=== PATIENT | female | born 1990 | race African-American/Black ===

== ENCOUNTER → 2018-12-18 | Emergency (ER) | payer OTHER ==
[~2018-12-18] VITALS: Ht 154.9 cm; Wt 61.2 kg
== END | disposition home or self-care (01) ==
LOC: ER 12:10
DX: K29.70 Gastritis, unspecified, without bleeding (principal)

== ENCOUNTER → 2020-06-17 | Outpatient (CLI) | payer OTHER | END | disposition home or self-care (01) | LOC: PRENATAL 08:00 | PROVIDERS: ATTEND Obstetrics & Gynecology Maternal & Fetal Medicine | DX: O28.1 Abnormal biochemical finding on antenatal screening of mother (principal); O35.0XX1 Maternal care for (suspected) central nervous system malformation in fetus, fetus 1; O35.3XX1 Maternal care for (suspected) damage to fetus from viral disease in mother, fetus 1; O98.512 Other viral diseases complicating pregnancy, second trimester; O34.211 Maternal care for low transverse scar from previous cesarean delivery; Z36.89 Encounter for other specified antenatal screening; Z3A.19 19 weeks gestation of pregnancy ==

== ENCOUNTER 2020-06-30 07:32 | Outpatient (CLI) | payer OTHER | END 2020-06-30 07:34 | disposition home or self-care (01) | LOC: SONOGRAMA 07:32 → MAMO-SONO 07:45 | PROVIDERS: ATTEND Specialist | DX: R10.2 Pelvic and perineal pain (principal) ==

== ENCOUNTER 2020-10-01 14:07 | Outpatient (CLI) | payer OTHER ==
[2020-10-01] MEDS ORDERED: PRENATAL TABLE1 EAC1 PO (14:13)
[2020-10-01] MEDS ORDERED: TYLENOL325 MG PO (14:13)
[2020-10-01] MEDS ORDERED: OMEPRAZOLE20 MG PO (14:14)
== END 2020-10-01 17:35 | disposition left against medical advice (07) ==
LOC: OBS/DEL 14:07
PROVIDERS: ATTEND Specialist
DX: O26.893 Other specified pregnancy related conditions, third trimester (principal); M54.5 Low back pain

== ENCOUNTER 2020-10-11 10:24 | Inpatient (IN) | payer OTHER ==
[~2020-10-11] VITALS: Ht 157.5 cm; Wt 3.2 kg
[~2020-10-11 10:24] MED LIST: OMEPRAZOLE20 MG PO; PRENATAL TABLE1 EAC1 PO; TYLENOL325 MG PO
[2020-10-21] MEDS ORDERED: AMPICILLIN PO (09:13)
[2020-10-31] MEDS ORDERED: AMPICILLIN SOD500 MG IM (08:24)
== END 2020-10-31 12:42 | disposition home or self-care (01) | DRG 785 ==
LOC: OB/GYN 10-28 08:00 → O/R 10-28 08:03 → OB/GYN 10-28 10:00
PROVIDERS: ADMIT Specialist; ATTEND Specialist
PROC: 0UB70ZZ Excision of Bilateral Fallopian Tubes, Open Approach (ICD-10-PCS; 2020-10-28)
PROC: 4A1HXFZ Monitoring of Products of Conception, Cardiac Rhythm, External Approach (ICD-10-PCS; 2020-10-28)
PROC: 10D00Z1 Extraction of Products of Conception, Low, Open Approach (ICD-10-PCS; principal; 2020-10-28 10:00)
DX: O34.211 Maternal care for low transverse scar from previous cesarean delivery (principal); O99.824 Streptococcus B carrier state complicating childbirth; Z37.0 Single live birth; Z3A.38 38 weeks gestation of pregnancy; Z30.2 Encounter for sterilization

== ENCOUNTER 2023-10-30 09:54 | Outpatient (CLI) | payer OTHER ==
[~2023-10-30 09:54] MED LIST changes: +AMPICILLIN PO; +AMPICILLIN SOD500 MG IM
== END 2023-10-30 09:58 | disposition home or self-care (01) ==
LOC: SONOGRAMA 09:54
DX: R10.13 Epigastric pain (principal); K81.0 Acute cholecystitis